=== PATIENT | female | born 1990 | race Caucasian/White ===

== ENCOUNTER 2017-08-14 06:11 | Emergency (ER) | payer OTHER ==
[~2017-08-14] VITALS: Ht 175.3 cm; Wt 127.0 kg
[2017-08-14 06:13] VITALS: BP 173/103; PULSE 105; RESP 16; TEMP 98.1; O2SAT 99
[2017-08-14] MEDS ORDERED: BACL10TA PO (06:31)
[2017-08-14] MEDS ORDERED: IBUP1TAB7 PO (06:31)
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
[2017-08-14 07:39] VITALS: BP 137/76
== END 2017-08-14 07:46 | disposition home or self-care (01) ==
LOC: NEPD 06:11
DX: Z04.1 Encounter for examination and observation following transport accident (principal); M54.9 Dorsalgia, unspecified; V49.49XA Driver injured in collision with other motor vehicles in traffic accident, initial encounter; W22.10XA Striking against or struck by unspecified automobile airbag, initial encounter; Y92.410 Unspecified street and highway as the place of occurrence of the external cause
CPT/HCPCS: 71045; 72072; 99284